=== PATIENT | male | born 1975 | race Caucasian/White ===

== ENCOUNTER 2017-03-06 19:33 | Emergency (ER) | payer OTHER ==
[~2017-03-06] VITALS: Ht 175.3 cm; Wt 97.3 kg
[2017-03-06] MEDS ORDERED: AMOX-291 PO (20:03)
[2017-03-06 21:00] VITALS: BP 148/95
== END 2017-03-06 21:02 | disposition home or self-care (01) ==
LOC: ED 20:45
DX: G51.0 Bell's palsy (principal)
CPT/HCPCS: 99283; J7512

== ENCOUNTER 2018-07-23 22:28 | Emergency (ER) | payer OTHER ==
[~2018-07-23] VITALS: Ht 175.3 cm; Wt 100.3 kg
[~2018-07-23 22:28] MED LIST: AMOX-291 PO
[2018-07-23] MEDS ORDERED: IBUPROFEN 800 MG TABLET PO STA (22:55)
[2018-07-23] MEDS ORDERED: IBUPROFEN 800 MG TABLET ONE (22:58)
[2018-07-23] MEDS ORDERED: SODIUM CHLORIDE 0.9% 1,000ML IVBOLUS ONE (23:00)
[2018-07-23] MEDS ORDERED: SODIUM CHLORIDE FLUSH 10ML SYR IVF ONE (23:00)
[2018-07-23 23:10] LABS: MICROSCOPIC AUTO
[2018-07-23 23:12] LABS: CULTURE INDICATED? YES
[2018-07-23 23:24] LABS: BASOPHILS # (AUTO) 0.07 x10^3/uL (0-0.1); BASOPHILS % (AUTO) 1 % (0-1); EOSINOPHILS # (AUTO) 0.03 x10^3/uL (0-0.4); EOSINOPHILS % (AUTO) 0 % (1-7); LYMPHOCYTES # (AUTO) 1.54 x10^3/uL (1-3.4); LYMPHOCYTES % (AUTO) 13 % (22-44); MD NO; MEAN CORPUSCULAR HGB CONC 34.9 g/dL (33.2-36.2); MEAN CORPUSCULAR VOLUME 91.8 fL (81-97); MEAN PLATELET VOLUME 8.7 fL (7.4-10.4); MONOCYTES # (AUTO) 0.86 x10^3/uL (0.2-0.8); MONOCYTES % (AUTO) 7 % (2-9); NEUTROPHILS # (AUTO) 9.48 x10^3/uL (1.8-6.8); NEUTROPHILS % (AUTO) 79 % (42-75); PLATELET COUNT 199 x10^3/uL (130-400); RED BLOOD COUNT 5.09 x10^6/uL (4.38-5.82); RED CELL DISTRIBUTION WIDTH 12.7 % (9.4-14.8)
[2018-07-23] MEDS ORDERED: CEFTRIAXONE PMX 1GM/50ML 50 ML IV ONE (23:30)
[2018-07-23 23:32] LABS: ALANINE AMINOTRANSFERASE 29 U/L (12-78); ALBUMIN 3.9 g/dL (3.4-5.0); ANION GAP 8 mmol/L (5-15); CALCIUM 8.3 mg/dL (8.5-10.1); CHLORIDE 105 mmol/L (98-107)
[2018-07-23 23:34] LABS: ALKALINE PHOSPHATASE 54 U/L (45-117); BILIRUBIN,TOTAL 0.4 mg/dL (0.2-1.0); TOTAL PROTEIN 7.8 g/dL (6.4-8.2)
[2018-07-23] MEDS ORDERED: CEFTRIAXONE PMX 1GM/50ML 50 ML ONE (23:35)
--- NOTE | 2018-07-23 23:41 | NUR ---
NO BLOOD CULTURES NEEDED. UA CULTURE DONE. DUNIA ANDRADE IN ROOM UPDATING PATIENT.
--- NOTE | 2018-07-23 23:56 | NUR ---
PT RESTING IN ROOM. REGULAR RESP. NO ACUTE DISTRESS NOTED. CALL LIGHT IN PLACE. WILL CONTINUE TO MONITOR.
[2018-07-24 00:15] VITALS: BP 141/76
== END 2018-07-24 00:35 | disposition home or self-care (01) ==
LOC: ED 23:08
DX: N30.01 Acute cystitis with hematuria (principal); I10 Essential (primary) hypertension; E86.0 Dehydration
CPT/HCPCS: 36415; 80053; 81001; 85025; 87077; 87086; 87186; 96361; 96365; 99285; J0696; J7030

== ENCOUNTER → 2018-09-22 | Outpatient (CLI) | payer OTHER ==
[2018-09-22 14:52] LABS: ALBUMIN 3.9 g/dL (3.4-5.0); ANION GAP 7 mmol/L (5-15); CALCIUM 8.9 mg/dL (8.5-10.1); CHLORIDE 106 mmol/L (98-107)
[2018-09-22 15:00] LABS: HEMOGLOBIN A1C 5.5 % (4.2-6.3)
[2018-09-22 15:04] LABS: ALANINE AMINOTRANSFERASE 29 U/L (12-78); ALKALINE PHOSPHATASE 56 U/L (45-117); BILIRUBIN,TOTAL 0.6 mg/dL (0.2-1.0); CHOL/HDL RATIO 4.3; CHOLESTEROL, TOTAL 185 mg/dL (140-239); CREATININE 0.99 mg/dL (0.7-1.3); HDL CHOL % 23 % (26-37); HDL CHOLESTEROL (DIRECT) 43 mg/dL (40-60); LDL CHOLESTEROL,CALCULATED 112 mg/dL (54-169); LDL/HDL RATIO 2.6 (0.5-3.0); TOTAL PROTEIN 7.7 g/dL (6.4-8.2); TRIGLYCERIDES 149 mg/dL (50-200); VLDL CHOLESTEROL 30 mg/dL (0-25)
== END | disposition home or self-care (01) ==
LOC: LAB 14:29
PROVIDERS: ATTEND Physician Assistant
DX: I10 Essential (primary) hypertension (principal); R73.9 Hyperglycemia, unspecified
CPT/HCPCS: 36415; 80053; 80061; 83036; 84443

== ENCOUNTER 2019-07-08 10:51 | Emergency (ER) | payer OTHER ==
[~2019-07-08] VITALS: Ht 175.3 cm; Wt 103.5 kg
--- NOTE | 2019-07-08 11:06 | NUR ---
GEAR SETTER: EKG DONE IN TRIAGE
[2019-07-08 11:56] LABS: MICROSCOPIC INDICATED
--- NOTE | 2019-07-08 11:58 | NUR ---
TO ROOM FROM LOBBY. NAD.
[2019-07-08 12:10] LABS: CULTURE INDICATED? YES
--- NOTE | 2019-07-08 12:20 | NUR ---
TASK RN: PT HERE WITH C/O DARK BLOODY URINE AND FLEX FLANK PAIN RIGHT GREATER THAN LEFT. RATES PAIN 1/10. PIV EST AND LABS DRAWN. BP AND SP02 MONITORING IN PLACE.
--- NOTE | 2019-07-08 12:22 | NUR ---
TASK RN: DR KIRBY AT BEDSIDE. URINE RESULTS REVIEWED. PT ASSESSMENT AND POC DISCUSSED. CALL LIGHT W/I REACH. VSS, NAD NOTED.
[2019-07-08] MEDS ORDERED: CEFTRIAXONE PMX 1GM/50ML 50 ML ONE (12:56)
[2019-07-08] MEDS ORDERED: SODIUM CHLORIDE FLUSH 10ML SYR IVF ONE (13:00)
[2019-07-08] MEDS ORDERED: CEFTRIAXONE PMX 1GM/50ML 50 ML IVPB ONE (13:00)
[2019-07-08] MEDS ORDERED: SODIUM CHLORIDE 0.9% 1,000ML IVBOLUS ONE ×2 (13:00→15:30)
--- NOTE | 2019-07-08 13:06 | NUR ---
REPORT FROM ANA MERCHANT. PT RESTING IN BED. VSS. ABD/IVF PER MAR. BC AND LABS DRAWN BY LAB PRIOR TO. CALL CERDA IN REACH. LABS PENDING.
[2019-07-08 13:10] LABS: BASOPHILS # (AUTO) 0.05 x10^3/uL (0-0.1); BASOPHILS % (AUTO) 0 % (0-1); EOSINOPHILS # (AUTO) 0.05 x10^3/uL (0-0.4); EOSINOPHILS % (AUTO) 0 % (1-7); LYMPHOCYTES # (AUTO) 1.15 x10^3/uL (1-3.4); LYMPHOCYTES % (AUTO) 8 % (22-44); MD NO; MEAN CORPUSCULAR HEMOGLOBIN 31.5 pg (27.5-34.5); MEAN CORPUSCULAR HGB CONC 33.8 g/dL (33.2-36.2); MEAN PLATELET VOLUME 8.8 fL (7.4-10.4); MONOCYTES % (AUTO) 5 % (2-9); NEUTROPHILS # (AUTO) 12.57 x10^3/uL (1.8-6.8); NEUTROPHILS % (AUTO) 87 % (42-75); PLATELET COUNT 212 x10^3/uL (130-400); RED BLOOD COUNT 5.38 x10^6/uL (4.38-5.82); RED CELL DISTRIBUTION WIDTH 12.4 % (9.4-14.8)
[2019-07-08 13:22] LABS: ALANINE AMINOTRANSFERASE 32 U/L (12-78); ALBUMIN 4.1 g/dL (3.4-5.0); ANION GAP 7 mmol/L (5-15); CHLORIDE 106 mmol/L (98-107); CREATININE 0.89 mg/dL (0.7-1.3)
[2019-07-08 13:24] LABS: ALKALINE PHOSPHATASE 64 U/L (45-117); BILIRUBIN,TOTAL 0.8 mg/dL (0.2-1.0); TOTAL PROTEIN 8.2 g/dL (6.4-8.2)
--- NOTE | 2019-07-08 14:45 | NUR ---
pt resting in bed. results back. ivf infusing. 400 cc bloody urine emptied from urinal. as
--- NOTE | 2019-07-08 15:43 | NUR ---
2nd liter. plan for ct. nad. call nolberto. as
[2019-07-08 16:00] VITALS: BP 145/78
--- NOTE | 2019-07-08 16:55 | NUR ---
lab in room for lactic acid redraw. nad. vss. as
== END 2019-07-08 17:22 | disposition home or self-care (01) ==
LOC: ED 11:51
DX: N10 Acute pyelonephritis (principal); R31.9 Hematuria, unspecified; I10 Essential (primary) hypertension
CPT/HCPCS: 36415; 74176; 80053; 81001; 83605; 85025; 87040; 87077; 87086; 87147; 93005; 96365; 96366; 99285; J0696; J7030; 87186

== ENCOUNTER 2019-07-22 15:32 | Emergency (ER) | payer OTHER ==
[~2019-07-22] VITALS: Ht 175.3 cm; Wt 99.0 kg
[2019-07-22 15:36] VITALS: BP 167/98
--- NOTE | 2019-07-22 15:45 | NUR ---
THIS SALES AND OPERATIONS TRAINEE WAS OBSERVING A PT IN THE ED WHEN THE PT PULLED OUT THEIR IV AND WITH THE BLOOD THROUGH IT IN THE FACE OF THE SALES AND OPERATIONS TRAINEE. BLOOD SPLATTER NOTED ON SECURITY MARTINEZ'S FACE ABOUT THE EYES. SALES AND OPERATIONS TRAINEE REMOVED TO THE ED T3 BI LAT EYES WASHED WITH THREE LITERS OF NS. AFTER FLUSHED SECURITY MARTINEZ REPORTS NORMAL VISSION AT THIS TIME.
[2019-07-22 16:26] LABS: BASOPHILS # (AUTO) 0.04 x10^3/uL (0-0.1); BASOPHILS % (AUTO) 1 % (0-1); EOSINOPHILS # (AUTO) 0.05 x10^3/uL (0-0.4); EOSINOPHILS % (AUTO) 1 % (1-7); LYMPHOCYTES # (AUTO) 1.33 x10^3/uL (1-3.4); LYMPHOCYTES % (AUTO) 20 % (22-44); MD NO; MEAN CORPUSCULAR HEMOGLOBIN 31.6 pg (27.5-34.5); MEAN CORPUSCULAR HGB CONC 34.2 g/dL (33.2-36.2); MEAN CORPUSCULAR VOLUME 92.5 fL (81-97); MEAN PLATELET VOLUME 8.1 fL (7.4-10.4); MONOCYTES # (AUTO) 0.39 x10^3/uL (0.2-0.8); MONOCYTES % (AUTO) 6 % (2-9); NEUTROPHILS # (AUTO) 4.88 x10^3/uL (1.8-6.8); NEUTROPHILS % (AUTO) 73 % (42-75); PLATELET COUNT 231 x10^3/uL (130-400); RED BLOOD COUNT 5.22 x10^6/uL (4.38-5.82); RED CELL DISTRIBUTION WIDTH 12.7 % (9.4-14.8)
[2019-07-22 16:36] LABS: ALANINE AMINOTRANSFERASE 37 U/L (12-78); ANION GAP 5 mmol/L (5-15); CALCIUM 8.8 mg/dL (8.5-10.1); CHLORIDE 107 mmol/L (98-107)
[2019-07-22 16:39] LABS: ALKALINE PHOSPHATASE 58 U/L (45-117); BILIRUBIN,TOTAL 0.6 mg/dL (0.2-1.0); CREATININE 0.86 mg/dL (0.7-1.3)
== END 2019-07-22 17:48 ==
LOC: ED 17:20
DX: Z77.21 Contact with and (suspected) exposure to potentially hazardous body fluids (principal); I10 Essential (primary) hypertension
CPT/HCPCS: 36415; 80053; 85025; 86706; 86803; 87806; 99283; G0475

== ENCOUNTER 2019-10-07 14:18 | Outpatient (CLI) | payer OTHER ==
[2019-10-07 14:40] LABS: CHLORIDE 108 mmol/L (98-107)
[2019-10-07 15:01] LABS: ALANINE AMINOTRANSFERASE 25 U/L (12-78); ALBUMIN 3.9 g/dL (3.4-5.0); ALKALINE PHOSPHATASE 56 U/L (45-117); ANION GAP 4 mmol/L (5-15); BILIRUBIN,TOTAL 0.5 mg/dL (0.2-1.0); CALCIUM 9.1 mg/dL (8.5-10.1); CREATININE 1.03 mg/dL (0.7-1.3)
== END 2019-10-07 23:59 | disposition home or self-care (01) ==
LOC: LAB 14:18
PROVIDERS: ATTEND Nurse Practitioner Primary Care
DX: I10 Essential (primary) hypertension (principal); R73.03 Prediabetes
CPT/HCPCS: 36415; 80053; 83036